=== PATIENT | male | born 2000 | race Caucasian/White ===

== ENCOUNTER 2023-10-27 10:06 | Day surgery (SDC) | payer OTHER ==
[~2023-10-27] VITALS: Ht 195.6 cm; Wt 83.1 kg
[~2023-10-27 10:06] MED LIST: TRANEXAMIC ACID 100 MG/ML 10ML VIAL IV ONE; UNRESOLVED CLARIFICATION ENTRY XX SCH
[2023-10-27] MEDS: LIDOCAINE 1% SDV 5ML VIAL PN ONE (10:35)
[2023-10-27] MEDS: EPINEPHrine INJ 1 MG/ML 1ML AMP PN ONE (10:35)
[2023-10-27] MEDS: ROPIvacaine 0.5% 30ML VIAL PN ONE (10:35)
[2023-10-27] MEDS: LR 1,000 ML IV SCH (10:53)
[2023-10-27] MEDS: fentaNYL 100 MCG/2 ML INJECTION IV PRN ×2 (10:57→14:28)
[2023-10-27] MEDS: MIDAZOLAM INJ 2MG/2ML VIAL IV PRN (10:57)
[2023-10-27] MEDS ORDERED: HYDROmorphone HCL 2MG/ML 1ML VIAL As Ordered ONE (11:49)
[2023-10-27] MEDS ORDERED: MIDAZOLAM INJ 2MG/2ML VIAL As Ordered ONE (11:49)
[2023-10-27] MEDS ORDERED: fentaNYL 100 MCG/2 ML INJECTION As Ordered ONE (11:49)
[2023-10-27] MEDS ORDERED: ROCURONIUM BROMIDE 50MG/5ML VIAL As Ordered ONE (11:50)
[2023-10-27] MEDS ORDERED: SUGAMMADEX SODIUM 500 MG/5 ML VIAL (BRIDION) As Ordered ONE (11:50)
[2023-10-27] MEDS ORDERED: ACETAMINOPHEN 1000MG 100ML IV BAG As Ordered ONE (11:50)
[2023-10-27] MEDS ORDERED: LIDOCAINE 2% 100MG/5ML SDV (FOR ANES.) As Ordered ONE (11:50)
[2023-10-27] MEDS ORDERED: ONDANSETRON 4MG 2ML VIAL As Ordered ONE (11:50)
[2023-10-27] MEDS ORDERED: propofoL 200 MG/20 ML VIAL As Ordered ONE (11:50)
[2023-10-27] MEDS: ceFAZolin SOD 2 GM in IV 1 EA IV ONE (12:30)
[2023-10-27] MEDS ORDERED: ePHEDrine SULFATE 25 MG/5 ML(5MG/ML) SYRINGE As Ordered ONE (12:39)
[2023-10-27] MEDS: TRANEXAMIC ACID 100 MG/ML 10ML VIAL As Ordered ONE (12:45)
[2023-10-27] MEDS ORDERED: KETOROLAC 60MG 2ML VIAL As Ordered ONE (12:49)
[2023-10-27] MEDS: oxyCODONE 5MG TAB PO PRN (14:36)
[2023-10-27] MEDS: ONDANSETRON 4MG 2ML VIAL IV PRN (15:17)
[2023-10-27] MEDS: HYDROMORPHONE HCL 0.5 MG/ 0.5 ML SYRINGE IV PRN (15:17)
[2023-10-27 16:35] VITALS: BP 135/79; TEMP 97.7; O2SAT 98
== END 2023-10-27 17:18 | disposition home or self-care (01) ==
LOC: M SDC 10:06
PROVIDERS: ATTEND Orthopaedic Surgery
DX: M94.8X6 Other specified disorders of cartilage, lower leg (principal); M23.41 Loose body in knee, right knee; M25.561 Pain in right knee
CPT/HCPCS: 27415; C1713; C9290; J0131; J0665; J0690; J1100; J1170; J1885; J2250; J2405; J3010